=== PATIENT | male | born 1980 | race Caucasian/White ===

== ENCOUNTER 2018-10-20 13:03 | Emergency (ER) | payer OTHER ==
[~2018-10-20] VITALS: Ht 182.9 cm; Wt 106.6 kg
[~2018-10-20 13:03] MED LIST: DESPEC-DM TABL1 EACH PO; MEDROL4 MG PO
== END 2018-10-20 15:34 | disposition home or self-care (01) ==
LOC: ER 13:03
DX: M25.512 Pain in left shoulder (principal)